=== PATIENT | female | born 1980 | race Caucasian/White ===

== ENCOUNTER 2024-06-13 08:28 | Outpatient (AMB) | payer OTHER, SELFPAY ==
[2024-06-13 08:48] VITALS: BP 126/70; PULSE 110; RESP 13; O2SAT 99; BMI 33.7
--- NOTE | 2024-06-13 08:48 | MHC.PC.OV ---
Vital Signs 06/13/24 08:48 Height 5 ft 7 in Weight 215 lb 8 oz BMI 33.7 BP 126/70 Blood Pressure Location Lt brachial Position Sitting Respiration 13 Pulse 110 H Pulse Source Pulse Oximeter Pulse Oximetry (%) 99 Oxygen Delivery Method Room Air Intake Visit Reasons: Establish Care not a transfer Intake Note: Patient reports she is here to establish care with [facility]. Patient reportds she has not seen a provider since 2014. Patient reports she has a concern for psoriasis and treatments available. 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 Required: No Accompanied by: Self / Same As Patient Allergies cephalexin [From Keflex] Allergy (Severe, Verified 06/13/24 08:53) Hives sumatriptan [From Imitrex] Allergy (Severe, Verified 06/13/24 08:53) Seizure Tobacco use date assessed: 06/13/24 Dental Screening Dental Screen Date: 06/13/24 Did you have a dental visit in the last 12 months?: No Did you have a dental problem in the last 6 months where you did not have access to dental care?: No Was dental information given to patient?: Patient has dentist HPI HPI Comments History of Present Illness Details The patient is a 44 year old female presenting to [facility]. Hasn't been to primary since 2014. Previously at [facility] Patient reports plaque psoriasis, polyarthralgia. Has not seen dermatology for years. Rash and pain flare about 4 months ago. Went to [facility] a few weeks ago and completed a 14 day course of prednisone. This has worked for her in the past but did very little this time she took it. She has been off for about two weeks. She continues to have plaque psoriasis of the legs abdomen. She has irritation under the bra line and on the belt line Follows with gynecology ROS see HPI PHYSICAL EXAM: GENERAL: Alert and oriented x 3. NAD EYES: EOMI. Anicteric. HENT: Moist mucous membranes. No scleral icterus. No cervical lymphadenopathy. LUNGS: Clear to auscultation bilaterally. CARDIOVASCULAR: Regular rate and rhythm. No murmur. No JVD. ABDOMEN: Soft, non-tender +bs EXTREMITIES: No edema. Non-tender. SKIN: Psoriatic plaques-raised red scaly circular lesions lower extremity. Redness and maceration below the breast b/l NEUROLOGIC: No focal neurological deficits. CN II-XII grossly intact PSYCHIATRIC: Cooperative. Appropriate mood and affect [facility] Medical History Arthritis Migraine aura, persistent Diverticulitis Psoriasis History of mammogram Surgical History Hx of section History of wisdom tooth extraction Family History Mother Hypertension Breast cancer Alcoholism Father Liver cancer Alcoholism Maternal Grandmother Colon cancer Paternal Grandmother Breast cancer Paternal Grandfather Alcoholism Social History Household Members: Significant Other, Family and Children Household Members Other:: Boyfiend, daughter, mother Housing: House Are you a primary critical care specialist to a significant other at home: No Do you presently have visiting nurse or other home services: No 75 years or older and lives alone: No Alcohol intake: current Alcohol intake frequency: 0-2 drinks per day Alcohol type: beer and hard liquor Patient Tobacco Use Status: Never used Tobacco e-Cigarette/Vaping Use: Never Used service: No Current occupational status: employed Current occupation: [employer] Current occupational exposures/hazards: No Cognitive needs: No Hearing needs: No Vision needs: No Questionnaire PHQ-9 Over the last 2 weeks, how often have you been bothered by any of the following problems? 1. Little interest or pleasure in doing things: not at all 2. Feeling down, depressed, or hopeless: not at all 3. Trouble falling or staying asleep, or sleeping too much: not at all 4. Feeling tired or having little energy: not at all 5. Poor appetite or overeating: not at all 6. Feeling bad about yourself - or that you are a failure or have let yourself or your family down: not at all 7. Trouble concentrating on things, such as reading the newspaper or watching television: not at all 8. Moving or speaking so slowly that other people could have noticed. Or the opposite - being so fidgety or restless that you have been moving around a lot more than usual: not at all 9. Thoughts that you would be better off or of hurting yourself in some way: not at all Total score: 0 Depression Screening Interpretation: Negative (neg) Depression Screening Done: Yes 86355 - PHQ-9 Billing: Yes Source: Developed by Drs. Carlos Yanez, Annalisa Deleon, Sai Schultz and colleagues, with an educational amparo from [employer]. Thrive Questionnaire Date Thrive assessed: 06/13/24 I am a: Patient What is your living situation today?: I have a steady place to live Within the past 12 months, did the food you bought not last and you didn't have the money to get more?: Never true Within the past 12 months, did you worry whether your food would run out before you got money to buy more?: Never true Do you have trouble paying for medicines?: No Do you have trouble getting transportation to medical appointments?: No Do you have trouble paying your heating and electricity bill?: No Do you have trouble taking care of your child, family member or friend?: No Do you have trouble with day-to-day activities such as bathing, preparing meals, shopping, managing finances, etc.?: No Are you currently unemployed and looking for a job?: No Please select the resources that you would like help with: None Currently or been in a relationship where the following occur: No concerns reported THRIVE Score: 0 AUDIT C Alcohol Use Questionnaire (AUDIT-C) 1. How often do you have a drink containing alcohol?: 4 or more times a week 2. How many drinks containing alcohol do you have on a typical day when you are drinking?: 1 or 2 3. How often do you have six or more drinks on one occasion?: Never Total Score: 4 MONA-7 AMB Questionnaire MONA-7 Date MONA - 7 assessed: 06/13/24 Feeling nervous, anxious, or on edge: 2 = More than half the days Not being able to stop or control worryin = Several days Worrying too much about different things: 1 = Several days Trouble relaxin = Not at all Being so restless that it is hard to sit still: 0 = Not at all Becoming easily annoyed or irritable: 1 = Several days Feeling afraid as if something awful might happen: 0 = Not at all Total MONA-7 score (0-4 normal; 5-9 mild; 10-14 moderate; 15-21 severe): 5 Source: Developed by Drs. Carlos Yanez, Annalisa Deleon, Sai Schultz and colleagues, with an educational amparo from [employer]. MONA-7 Assessment Billing MONA-7 Assessment Tool: MONA-7 Assessment 91206 Physical exam (Primary Care) Vital Signs: Last Vital Signs Pulse 110 H 06/13/24 08:48 Resp 13 06/13/24 08:48 BP 126/70 06/13/24 08:48 Pulse Ox 99 06/13/24 08:48 Oxygen Delivery Method Room Air 06/13/24 08:48 BMI result Body Mass Index 33.7 Tobacco/Smoking Status: Tobacco use Status Tobacco use date assessed 06/13/24 06/13/24 08:58 Patient Tobacco Use Status Never used Tobacco 06/13/24 08:58 e-Cigarette/Vaping Use Never Used 06/13/24 08:58 PHQ-9: PHQ-9 Score PHQ-9: Total score 0 06/13/24 08:58 Depression Screening Interpretation: Negative (neg) Thrive Assessment: Date of Thrive Assessment Date Thrive assessed 06/13/24 06/13/24 08:58 Currently or been in a relationship where the following occur: No concerns reported Assessment and Plan Assessment & Plan (1) Psoriasis: Code(s): L40.9 - Psoriasis, unspecified Plan: [facility]) Polyarthralgia: Code(s): M25.50 - Pain in unspecified joint Plan: Labs ordered. Referral to rheumatology placed (3) Establishing care with new doctor, encounter for: Code(s): Z76.89 - Persons encountering health services in other specified circumstances Plan: 44 yo presenting to establish care. past medical, surgical, social and family history reviewed. Chart updated Orders: Orders HLA B27 Today L40.50 - Arthropathic psoriasis, unspecified, L40.9 - Psoriasis, unspecified, Z13.0 - Encounter for screening for diseases of the blood and blood-forming organs and certain disorders involving the immune mechanism Complete Blood Count Auto Diff Today L40.50 - Arthropathic psoriasis, unspecified, L40.9 - Psoriasis, unspecified, Z13.0 - Encounter for screening for diseases of the blood and blood-forming organs and certain disorders involving the immune mechanism Comprehensive Met. Panel Today L40.50 - Arthropathic psoriasis, unspecified, L40.9 - Psoriasis, unspecified, Z13.0 - Encounter for screening for diseases of the blood and blood-forming organs and certain disorders involving the immune mechanism Lipid Panel Today L40.50 - Arthropathic psoriasis, unspecified, L40.9 - Psoriasis, unspecified, Z13.0 - Encounter for screening for diseases of the blood and blood-forming organs and certain disorders involving the immune mechanism Lyme IgG/IgM w/reflex to WB Today L40.50 - Arthropathic psoriasis, unspecified, L40.9 - Psoriasis, unspecified, Z13.0 - Encounter for screening for diseases of the blood and blood-forming organs and certain disorders involving the immune mechanism Erythrocyte Sedimentation Rate Today L40.50 - Arthropathic psoriasis, unspecified, L40.9 - Psoriasis, unspecified, Z13.0 - Encounter for screening for diseases of the blood and blood-forming organs and certain disorders involving the immune mechanism Cyclic Citrullinated Peptide Today L40.50 - Arthropathic psoriasis, unspecified, L40.9 - Psoriasis, unspecified, Z13.0 - Encounter for screening for diseases of the blood and blood-forming organs and certain disorders involving the immune mechanism TSH reflex Free T4 Today L40.50 - Arthropathic psoriasis, unspecified, L40.9 - Psoriasis, unspecified, M19.90 - Unspecified osteoarthritis, unspecified site, Z13.0 - Encounter for screening for diseases of the blood and blood-forming organs and certain disorders involving the immune mechanism Referrals Dermatology Referral L40.50 - Arthropathic psoriasis, unspecified, L40.9 - Psoriasis, unspecified Rheumatology Referral L40.50 - Arthropathic psoriasis, unspecified, L40.9 - Psoriasis, unspecified Medications: New clotrimazole-betamethasone 1-0.05 % 1 appl topical BID 4 weeks 45 grams 1RF Coding Level of Care Code New Pt Level 4 (21051) Complex EM visit Add On G2211 Diagnoses Psoriasis L40.9 Polyarthralgia M25.50 Establishing care with new doctor, encounter for Z76.89 Additional Codes MONA-7 Assessment Billing - MONA-7 Assessment Tool: MONA-7 Assessment 72474 ([id number])
== END 2024-06-13 09:58 | disposition home or self-care (01) ==
PROVIDERS: PCP Internal Medicine; Visit Provider Internal Medicine
DX: L40.9 Psoriasis, unspecified (principal); M25.50 Pain in unspecified joint; Z76.89 Persons encountering health services in other specified circumstances
CPT/HCPCS: 99204; G2211

== ENCOUNTER 2024-06-13 09:46 | Outpatient (REF) | payer OTHER, SELFPAY ==
[2024-06-13 11:31] LABS: MANUAL DIFF FLAG NO
[2024-06-13 11:33] LABS: Basophils Percent Auto 0.8 % (0-2); Eosinophils Absolute Auto 0.1 X10*3/uL (0.0-0.4); Eosinophils Percent Auto 2.1 % (0-4); Hematocrit 41.1 % (37.0-47.0); Hemoglobin 13.2 g/dl (12.0-16.0); Imm Gran Abs Auto 0.04 X10*3/uL (0.00-0.03); Imm Gran Pct Auto 0.8 % (0.0-0.4); Lymphocytes Absolute Auto 0.9 X10*3/uL (1.2-4.9); Lymphocytes Percent Auto 19.2 % (20-40); Mean Corpuscular HGB Conc 32.1 g/dl (31.0-35.0); Mean Corpuscular Hemoglobin 32.5 pg (27.0-33.0); Mean Corpuscular Volume 101.2 fL (80.0-98.0); Mean Platelet Volume 10.3 fL (9.4-12.3); Monocytes Absolute Auto 0.4 X10*3/uL (0.1-1.2); Monocytes Percent Auto 9.3 % (2-11); Neutrophils Absolute Auto 3.2 x10*3/uL (2.0-8.3); Neutrophils Percent Auto 67.8 % (45-73); Platelet Count 261 X10*3/uL (160-400); Red Blood Count 4.06 X10*6/uL (4.20-5.50); Red Cell Distribution Width 13.4 % (11.0-16.0); White Blood Count 4.8 X10*3/uL (4.8-10.8)
[2024-06-13 11:43] LABS: Erythrocyte Sedimentation Rate 14 MM/HR (0-20)
[2024-06-13 12:31] LABS: Alanine Aminotransferase 27 U/L (0-31); Albumin Level 4.3 g/dL (3.5-5.0); Alkaline Phosphatase 82 U/L (39-117); Anion Gap 12 (12-20); Aspartate Amino Transferase 23 U/L (5-31); Bilirubin Total 0.4 mg/dL (0.0-1.0); Blood Urea Nitrogen 12 mg/dL (9-16); Calcium 9.4 mg/dL (8.4-10.2); Carbon Dioxide 24 mmol/L (22-29); Chloride 108 mmol/L (96-108); Cholesterol 186 mg/dL (<200); Estimated Glomerular Filt Rate > 60; Glucose Random 80 mg/dL (60-115); HDL Cholesterol 56 mg/dL (>40); LDL Cholesterol Calculated 118 mg/dL (<100); Sodium 140 mmol/L (135-145); Total Protein 7.4 g/dL (6.5-8.0); Triglycerides 61 mg/dL (<150)
[2024-06-13 12:39] LABS: TSH reflex Free T4 1.24 uIU/mL (0.32-4.0)
[2024-06-14 20:53] LABS: Lyme Abs Screen <0.90 index
[2024-06-15 14:53] LABS: Cyclic Citrullinated Peptide <16 UNITS
[2024-06-16 20:58] LABS: HLA B27 Negative (Negative)
== END 2024-06-13 09:47 | disposition home or self-care (01) ==
LOC: HO.WFDLDS 09:46
PROVIDERS: Visit Provider Internal Medicine
DX: L40.50 Arthropathic psoriasis, unspecified (principal); L40.9 Psoriasis, unspecified; Z13.0 Encounter for screening for diseases of the blood and blood-forming organs and certain disorders involving the immune mechanism; M19.90 Unspecified osteoarthritis, unspecified site
CPT/HCPCS: 36415; 80053; 80061; 84443; 85025; 85652; 86200; 86617; 86618; 86812

== ENCOUNTER 2024-11-29 08:34 | Outpatient (AMB) | payer OTHER, SELFPAY ==
--- NOTE | 2024-11-29 08:39 | A.OFFPC_ITS ---
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 stable polyarthralgia. Has not seen dermatology for years. Rash and pain flare about 10 months ago has subsided since. She continues to have plaque psoriasis of the legs abdomen & back Follows with gynecology-[facility] scheduled at February for cologuard. declines colonoscopy ROS see HPI PHYSICAL EXAM: GENERAL: Alert and oriented x 3. NAD EYES: EOMI. Anicteric. HENT: Moist mucous membranes. No scleral icterus. No cervical lymphadenopathy. LUNGS: Clear to auscultation bilaterally. CARDIOVASCULAR: Regular rate and rhythm. No murmur. No JVD. ABDOMEN: Soft, non-tender +bs EXTREMITIES: No edema. Non-tender. SKIN: Psoriatic plaques-raised red scaly circular lesions lower extremity. Redness and maceration below the breast b/l NEUROLOGIC: No focal neurological deficits. CN II-XII grossly intact PSYCHIATRIC: Cooperative. Appropriate mood and affect [facility] Medical History Arthritis Migraine aura, persistent Diverticulitis Psoriasis History of mammogram Surgical History Hx of section History of wisdom tooth extraction Family History (Updated 11/29/24 @ 08:45 by Toma Dawson CMA) Mother Hypertension Breast cancer Alcoholism Father Liver cancer Alcoholism Maternal Grandmother Colon cancer Paternal Grandmother Breast cancer Paternal Grandfather Alcoholism Other Substance abuse Social History Household Members: Significant Other, Family and Children Household Members Other:: Boyfiend, daughter, mother Housing: House Are you a primary personal care home administrator to a significant other at home: No Do you presently have visiting nurse or other home services: No 75 years or older and lives alone: No Alcohol intake: current Alcohol intake frequency: 0-2 drinks per day Alcohol type: beer and hard liquor Patient Tobacco Use Status: Former Tobacco user Cigarette Packs Per Day: 0.5 Years Smoked: 20 e-Cigarette/Vaping Use: Never Used service: No Current occupational status: employed Current occupation: [employer] Current occupational exposures/hazards: No Cognitive needs: No Hearing needs: No Vision needs: No Questionnaire PHQ-9 Over the last 2 weeks, how often have you been bothered by any of the following problems? 1. Little interest or pleasure in doing things: not at all 2. Feeling down, depressed, or hopeless: not at all 3. Trouble falling or staying asleep, or sleeping too much: not at all 4. Feeling tired or having little energy: not at all 5. Poor appetite or overeating: not at all 6. Feeling bad about yourself - or that you are a failure or have let yourself or your family down: not at all 7. Trouble concentrating on things, such as reading the newspaper or watching television: not at all 8. Moving or speaking so slowly that other people could have noticed. Or the opposite - being so fidgety or restless that you have been moving around a lot more than usual: not at all 9. Thoughts that you would be better off or of hurting yourself in some way: not at all Total score: 0 Depression Screening Interpretation: Negative Depression Screening Done: Yes 03145 - PHQ-9 Billing: Yes Source: Developed by Drs. Carlos Yanez, Annalisa Deleon, Sai Schultz and colleagues, with an educational amparo from [employer]. Thrive Questionnaire Date Thrive assessed: 11/22/24 I am a: Patient What is your living situation today?: I choose not to answer this question Within the past 12 months, did the food you bought not last and you didn't have the money to get more?: I choose not to answer this question Within the past 12 months, did you worry whether your food would run out before you got money to buy more?: I choose not to answer this question Do you have trouble paying for medicines?: I choose not to answer this question Do you have trouble getting transportation to medical appointments?: I choose not to answer this question Do you have trouble paying your heating and electricity bill?: I choose not to answer this question Do you have trouble taking care of your child, family member or friend?: I choose not to answer this question Do you have trouble with day-to-day activities such as bathing, preparing meals, shopping, managing finances, etc.?: I choose not to answer this question Are you currently unemployed and looking for a job?: I choose not to answer this question Are you interested in more education?: I choose not to answer this question Please select the resources that you would like help with: None Currently or been in a relationship where the following occur: I choose not to answer THRIVE Score: 0 AUDIT C Alcohol Use Questionnaire (AUDIT-C) 1. How often do you have a drink containing alcohol?: 2-3 times a week 2. How many drinks containing alcohol do you have on a typical day when you are drinking?: 3 or 4 3. How often do you have six or more drinks on one occasion?: Never Total Score: 4 MONA-7 AMB Questionnaire MONA-7 Date MONA - 7 assessed: 11/29/24 Feeling nervous, anxious, or on edge: 0 = Not at all Not being able to stop or control worryin = Not at all Worrying too much about different things: 0 = Not at all Trouble relaxin = Not at all Being so restless that it is hard to sit still: 0 = Not at all Becoming easily annoyed or irritable: 0 = Not at all Feeling afraid as if something awful might happen: 0 = Not at all Total MONA-7 score (0-4 normal; 5-9 mild; 10-14 moderate; 15-21 severe): 0 Source: Developed by Drs. Carlos Yanez, Annalisa Deleon, Sai Schultz and colleagues, with an educational amparo from [employer] MONA-7 Assessment Billing MONA-7 Assessment Tool: MONA-7 Assessment 33669 Physical exam (Primary Care) Vital Signs: Last Vital Signs Pulse 113 H 01/14/25 08:44 BP 128/88 11/29/24 08:44 Pulse Ox 99 11/29/24 08:44 Oxygen Delivery Method Room Air 11/29/24 08:44 BMI result Body Mass Index 34.1 Tobacco/Smoking Status: Tobacco use Status Tobacco use date assessed 06/13/24 06/13/24 08:58 Patient Tobacco Use Status Never used Tobacco 06/13/24 08:58 e-Cigarette/Vaping Use Never Used 06/13/24 08:58 Depression Screening Interpretation: Negative Thrive Assessment: Date of Thrive Assessment Date Thrive assessed 11/22/24 11/22/24 11:45 Currently or been in a relationship where the following occur: I choose not to answer Coding Level of Care Code Est Pt Prev Care 40-64y(13727) Diagnoses Physical exam Z00.00 Psoriatic arthritis L40.50 Additional Codes MONA-7 Assessment Billing - MONA-7 Assessment Tool: MONA-7 Assessment 25755 ([id number]) PHQ-9 - 34851 - PHQ-9 Billing: Yes ([id number]) Assessment & Plan Assessment & Plan (1) Physical exam: Code(s): Z00.00 - Encounter for general adult medical examination without abnormal findings Category: Medical Plan: Preventive measures for age discussed Cologuard sent Labs UTD and reassuring (2) Psoriatic arthritis: Code(s): L40.50 - Arthropathic psoriasis, unspecified Category: Medical Plan: stable on topical therapy Orders: Referrals Cologuard Test Z12.11 - Encounter for screening for malignant neoplasm of colon, Z12.12 - Encounter for screening for malignant neoplasm of rectum Medications: New fluocinonide 0.05% 1 appl topical BID-QID PRN 60 mL 3RF itching clobetasol 0.05% Apply a thin film to affected areas of the scalp once daily: apply to dry scalp and leave in place for 15 minutes before lathering and rinsing 1 appl topical DAILY 118 mL 3RF clobetasol 0.05% 1 appl topical DAILY 2 weeks 60 grams 3RF
[2024-11-29 08:44] VITALS: BP 128/88; PULSE 113; O2SAT 99; BMI 34.1
== END 2024-11-29 09:07 | disposition home or self-care (01) ==
PROVIDERS: PCP Internal Medicine; Visit Provider Internal Medicine
DX: Z00.00 Encounter for general adult medical examination without abnormal findings (principal); L40.50 Arthropathic psoriasis, unspecified

== ENCOUNTER → 2024-11-29 08:34 | Outpatient (BNVA) | payer OTHER, SELFPAY | PROVIDERS: PCP Internal Medicine; Visit Provider Internal Medicine | DX: Z00.00 Encounter for general adult medical examination without abnormal findings (principal); L40.50 Arthropathic psoriasis, unspecified | CPT/HCPCS: 96127; 99396 ==